=== PATIENT | female | born 1995 | race Caucasian/White ===

== ENCOUNTER 2021-09-05 09:23 | Emergency (ER) | payer SELFPAY ==
[2021-09-05] MEDS ORDERED: Sodium Chloride 0.9% 10 ML Syringe FLUSH PRN (10:11)
[2021-09-05] MEDS ORDERED: HYDROmorphone 0.5 MG/0.5 ML Syringe IVPUSH ONE (10:13)
== END 2021-09-05 11:59 | disposition home or self-care (01) ==
LOC: JD.ED 09:23
DX: R10.2 Pelvic and perineal pain (principal)
CPT/HCPCS: 36415; 81003; 84703; 85025; 96374; 99284; J1170

== ENCOUNTER 2021-09-09 11:35 | Emergency (ER) | payer SELFPAY ==
[2021-09-09] MEDS ORDERED: Ondansetron 4 MG/2 ML SDV IVPUSH ONE (12:01)
[2021-09-09] MEDS ORDERED: HYDROmorphone 1 MG/ML Syringe IVPUSH STA (12:01)
[2021-09-09] MEDS ORDERED: Sodium Chloride 0.9% 10 ML Syringe FLUSH PRN ×2 (12:01→13:00)
[2021-09-09] MEDS ORDERED: Iopamidol 612 MG/ML 100 ML Bottle IVPUSH ONE (13:00)
[2021-09-09] MEDS ORDERED: Diatrizoate Meglumine/Diatrizoate Sodium 37% 120 ML Bottle PO ONE (13:00)
[2021-09-09] MEDS ORDERED: HYDROmorphone 0.5 MG/0.5 ML Syringe IVPUSH ONE (13:36)
== END 2021-09-09 15:25 | disposition home or self-care (01) ==
LOC: JD.ED 11:35
DX: N83.201 Unspecified ovarian cyst, right side (principal); Z72.0 Tobacco use
CPT/HCPCS: 36415; 74177; 76830; 80053; 81001; 81025; 83690; 85025; 86140; 96374; 96375; 96376; 99284; J1170; J2405; Q9963; Q9967

== ENCOUNTER 2021-09-30 11:26 | Emergency (ER) | payer SELFPAY ==
[2021-09-30] MEDS ORDERED: Lidocaine 2% Jelly 10 ML Urojet MUCMEM ONE (12:20)
[2021-09-30] MEDS ORDERED: HYDROmorphone 1 MG/ML Syringe IM ONE ×2 (12:20→13:39)
[2021-09-30 14:17] LABS: C. TRACHOMATIS BY PCR NOT DETECTED; N. GONORRHOEAE BY PCR NOT DETECTED
== END 2021-09-30 15:06 | disposition home or self-care (01) ==
LOC: JD.ED 11:26
DX: R10.2 Pelvic and perineal pain (principal); N94.89 Other specified conditions associated with female genital organs and menstrual cycle; Z72.0 Tobacco use
CPT/HCPCS: 36415; 76830; 80053; 81001; 81025; 85025; 86140; 87210; 87491; 87591; 87808; 96372; 99284; J1170; 99283

== ENCOUNTER 2022-03-26 09:06 | Emergency (ER) | payer MEDICAID ==
[2022-03-26] MEDS ORDERED: Lactated Ringers 1,000 ML IV SCH (09:45)
[2022-03-26] MEDS ORDERED: Morphine 2 MG/ML SYRINGE IVPUSH ONE ×2 (11:08→18:01)
[2022-03-26] MEDS ORDERED: Potassium Chloride 20 MEQ Tab.ER PO ONE (14:49)
[2022-03-26 17:16] LABS: C. TRACHOMATIS BY PCR NOT DETECTED; N. GONORRHOEAE BY PCR NOT DETECTED
[2022-03-26] MEDS ORDERED: Potassium Chloride 20 MEQ Tab.ER ONE (18:05)
== END 2022-03-26 18:50 | disposition home or self-care (01) ==
LOC: JD.ED 09:06
DX: O20.0 Threatened abortion (principal); Z91.048 Other nonmedicinal substance allergy status; Z3A.09 9 weeks gestation of pregnancy
CPT/HCPCS: 36415; 76817; 80053; 81001; 84702; 85025; 85610; 85730; 86900; 86901; 87210; 87491; 87591; 87808; 96361; 96374; 96376; 99284; A9270; J2270; J7120

== ENCOUNTER 2022-10-24 05:05 | Inpatient (IN) | payer MEDICAID, OTHER ==
[~2022-10-24 05:05] MED LIST: Oxytocin/Lactated Ringers 10 UNIT/1,000 ML BAG IV SCH; Sodium Chloride 0.9% 10 ML Syringe FLUSH PRN
[2022-10-24] MEDS ORDERED: Citric Acid/Sodium Citrate Solution 30 ML Cup PO ONE (05:18)
[2022-10-24] MEDS ORDERED: Metoclopramide 10 MG/2 ML SDV IVPUSH ONE (05:18)
[2022-10-24] MEDS ORDERED: Lactated Ringers 1,000 ML IV SCH (05:30)
[2022-10-24] MEDS: Lactated Ringers 1,000 ML IV SCH ×2 (05:40→06:18)
[2022-10-24 06:17] LABS: BASOPHILS ABSOLUTE AUTO 0.02 K/mm3 (0.01-0.08); BASOPHILS PERCENT AUTO 0.2 % (0.1-1.2); EOSINOPHILS ABSOLUTE AUTO 0.19 K/mm3 (0.04-0.36); EOSINOPHILS PERCENT AUTO 1.4 (0.7-5.8); HEMATOCRIT 32.6 % (34.1-44.9); HEMOGLOBIN 10.1 gm/dl (11.2-15.7); IMMATURE GRAN ABSOLUTE AUTO 0.11 K/mm3 (0.00-0.10); IMMATURE GRAN PERCENT AUTO 0.8 % (<=1.0); LYMPHOCYTES ABSOLUTE AUTO 2.19 K/mm3 (1.18-3.74); LYMPHOCYTES PERCENT AUTO 16.6 % (19.3-51.7); MEAN CORPUSCULAR HEMOGLOBIN 23.3 pg (25.6-32.2); MEAN CORPUSCULAR VOLUME 75.1 fl (79.4-94.8); MEAN PLATELET VOLUME 12.1 fl (9.4-12.3); MONOCYTES ABSOLUTE AUTO 1.31 K/mm3 (0.24-0.36); MONOCYTES PERCENT AUTO 9.9 % (4.7-12.5); NEUTROPHILS ABSOLUTE AUTO 9.36 K/mm3 (1.56-6.13); NEUTROPHILS PERCENT AUTO 71.1 % (34.0-71.1); PLATELET COUNT,PLT 312 K/mm3 (182-369); RED BLOOD CELL COUNT 4.34 M/mm3 (3.98-5.22); WHITE BLOOD CELL COUNT,WBC 13.18 K/mm3 (3.98-10.04)
[2022-10-24] MEDS ORDERED: ceFAZolin 2 GM in Sodium Chloride 0.9% 50 ML IV ONE (07:00)
[2022-10-24] MEDS ORDERED: Meperidine 50 MG/ML Vial IVPUSH PRN (07:06)
[2022-10-24] MEDS ORDERED: Ondansetron 4 MG/2 ML SDV IVPUSH PRN (07:06)
[2022-10-24] MEDS ORDERED: fentaNYL 100 MCG/2 ML SDV IVPUSH PRN (07:06)
[2022-10-24] MEDS ORDERED: diphenhydrAMINE 50 MG/ML SDV IVPUSH PRN ×2 (07:06→10:44)
[2022-10-24] MEDS ORDERED: Bupivacaine 0.5% 30 ML SDV ONE (07:09)
[2022-10-24] MEDS ORDERED: Morphine PF 1 MG/ML Amp ONE (07:14)
[2022-10-24] MEDS ORDERED: Oxytocin 10 Units/1 ML SDV ONE ×2 (07:14→08:47)
[2022-10-24] MEDS ORDERED: Ondansetron 4 MG/2 ML SDV ONE (07:14)
[2022-10-24] MEDS ORDERED: ceFAZolin 2 GM Vial ONE (08:00)
[2022-10-24] MEDS ORDERED: Phenylephrine 1% 10 MG/ML SDV ONE (08:14)
[2022-10-24] MEDS ORDERED: Ketorolac 30 MG/ML SDV ONE (08:28)
[2022-10-24] MEDS ORDERED: Sodium Chloride 0.9% 10 ML Syringe FLUSH SCH (09:00)
[2022-10-24] MEDS ORDERED: Acetaminophen/oxyCODONE 325-5 MG Tab PO PRN (10:44)
[2022-10-24] MEDS ORDERED: Dextrose 5%-Lactated Ringers 1,000 ML IV SCH ×2 (10:44→12:30)
[2022-10-24] MEDS ORDERED: Naloxone 0.4 MG/ML SDV IVPUSH PRN (10:44)
[2022-10-24] MEDS ORDERED: Magnesium Hydroxide 400 MG/5 ML Susp 30 ML Cup PO PRN (10:44)
[2022-10-24] MEDS ORDERED: ePHEDrine 50 MG/ML SDV IVPUSH PRN (10:44)
[2022-10-24] MEDS ORDERED: Oxytocin/Lactated Ringers 10 UNIT/1,000 ML BAG IV SCH (10:44)
[2022-10-24] MEDS: Sertraline 50 MG Tab PO SCH (11:34)
[2022-10-24] MEDS: Acetaminophen/oxyCODONE 325-5 MG Tab PO PRN ×3 (11:59→23:30)
[2022-10-24] MEDS: Ketorolac 30 MG/ML SDV IVPUSH SCH ×2 (15:20→21:41)
[2022-10-24] MEDS ORDERED: Lactated Ringers 1,000 ML IV ONE (16:12)
[2022-10-24] MEDS: Ferrous Sulfate 324 MG Tab.EC PO SCH (16:16)
[2022-10-24] MEDS: oxyCODONE 5 MG Tab PO PRN ×4 (17:32→22:51)
[2022-10-24] MEDS: Docusate Sodium 100 MG Cap PO SCH (22:16)
[2022-10-25] MEDS: Ketorolac 30 MG/ML SDV IVPUSH SCH (03:40)
[2022-10-25] MEDS: oxyCODONE 5 MG Tab PO PRN ×3 (03:41→09:13)
[2022-10-25] MEDS: Acetaminophen/oxyCODONE 325-5 MG Tab PO PRN (05:41)
[2022-10-25 06:22] LABS: BASOPHILS ABSOLUTE AUTO 0.03 K/mm3 (0.01-0.08); BASOPHILS PERCENT AUTO 0.2 % (0.1-1.2); EOSINOPHILS ABSOLUTE AUTO 0.28 K/mm3 (0.04-0.36); EOSINOPHILS PERCENT AUTO 2.3 (0.7-5.8); HEMATOCRIT 30.7 % (34.1-44.9); HEMOGLOBIN 9.5 gm/dl (11.2-15.7); IMMATURE GRAN ABSOLUTE AUTO 0.09 K/mm3 (0.00-0.10); IMMATURE GRAN PERCENT AUTO 0.7 % (<=1.0); LYMPHOCYTES ABSOLUTE AUTO 2.31 K/mm3 (1.18-3.74); LYMPHOCYTES PERCENT AUTO 19.2 % (19.3-51.7); MEAN CORPUSCULAR HEMOGLOBIN 23.5 pg (25.6-32.2); MEAN CORPUSCULAR HGB CONC 30.9 g/dl (32.2-35.5); MEAN PLATELET VOLUME 11.1 fl (9.4-12.3); MONOCYTES ABSOLUTE AUTO 1.03 K/mm3 (0.24-0.36); MONOCYTES PERCENT AUTO 8.5 % (4.7-12.5); NEUTROPHILS ABSOLUTE AUTO 8.31 K/mm3 (1.56-6.13); NEUTROPHILS PERCENT AUTO 69.1 % (34.0-71.1); PLATELET COUNT,PLT 229 K/mm3 (182-369); RED BLOOD CELL COUNT 4.04 M/mm3 (3.98-5.22); WHITE BLOOD CELL COUNT,WBC 12.05 K/mm3 (3.98-10.04)
[2022-10-25] MEDS ORDERED: Acetaminophen/oxyCODONE 325-5 MG Tab PO PRN ×2 (07:30)
[2022-10-25] MEDS: Ferrous Sulfate 324 MG Tab.EC PO SCH ×2 (07:47→17:05)
[2022-10-25] MEDS: Ibuprofen 600 MG Tab PO PRN ×2 (07:59→14:04)
[2022-10-25] MEDS: Sertraline 50 MG Tab PO SCH (08:23)
[2022-10-25] MEDS: Prenatal Multivitamin with Calcium/Folic Acid/Iron Tab PO SCH ×2 (08:23→09:00)
[2022-10-25] MEDS: Docusate Sodium 100 MG Cap PO SCH (08:23)
== END 2022-10-25 18:45 | disposition home or self-care (01) | DRG 787 ==
LOC: JD.OB 05:05
PROVIDERS: ADMIT Obstetrics & Gynecology; ATTEND Obstetrics & Gynecology
PROC: 10D00Z1 Extraction of Products of Conception, Low, Open Approach (ICD-10-PCS; principal; 2022-10-24)
DX: O34.211 Maternal care for low transverse scar from previous cesarean delivery (principal); O98.32 Other infections with a predominantly sexual mode of transmission complicating childbirth; Z37.0 Single live birth; Z3A.39 39 weeks gestation of pregnancy; A60.09 Herpesviral infection of other urogenital tract; O99.824 Streptococcus B carrier state complicating childbirth; O99.344 Other mental disorders complicating childbirth; F41.9 Anxiety disorder, unspecified; F32.A Depression, unspecified; O99.02 Anemia complicating childbirth; D50.9 Iron deficiency anemia, unspecified; O99.334 Smoking (tobacco) complicating childbirth; F17.290 Nicotine dependence, other tobacco product, uncomplicated; Z91.09 Other allergy status, other than to drugs and biological substances
CPT/HCPCS: 36415; 59025; 85025; 86592; 86850; 86900; 86901; A9270-GY; J0690; J1885; J2274; J2370; J2405; J2590; J2765; J3490; J7120; J7121